=== PATIENT | male | born 1990 ===

== ENCOUNTER 2018-04-11 01:47 | Emergency (ER) | payer SELFPAY ==
[~2018-04-11] VITALS: Ht 175.3 cm; Wt 92.4 kg
[2018-04-11 02:32] LABS: INFLUENZA A NONE DETECTED (NONE DETECT); INFLUENZA B NONE DETECTED (NONE DETECT)
[2018-04-11] MEDS ORDERED: AMOXICILLIN500 MG PO (03:54)
[2018-04-11 04:00] VITALS: BP 125/70
== END 2018-04-11 04:05 | disposition home or self-care (01) | DRG 153 ==
LOC: ED 01:47
PROVIDERS: Emergency Medicine
DX: J06.9 Acute upper respiratory infection, unspecified (principal); F17.210 Nicotine dependence, cigarettes, uncomplicated; H66.91 Otitis media, unspecified, right ear; R05 Cough; R09.89 Other specified symptoms and signs involving the circulatory and respiratory systems; M79.1 Myalgia